=== PATIENT | female | born 1935 | race American Indian/Alaskan Native ===

== ENCOUNTER 2017-03-12 09:08 | Outpatient (CLI) | payer MEDICARE ==
--- NOTE | 2017-03-12 10:12 | Mammography Report ---
Screening mammogram: The patient had bilateral breast reduction surgery and there is distortion and retraction of the nipples related to the surgery. There are 2 biopsy clips now located in the central right breast. There is a biopsy clip located in the inferior left breast. Scattered benign calcifications are noted. A few small circumscribed scattered nodules are identified in each breast. These findings appear unchanged from prior exams obtained in 2016. No currently suspicious findings. CAD used. Impressions: Stable breast pattern postreduction surgery and biopsies. Recommendation: Annual mammogram followup. BI-RADS CATEGORY: 2 = Benign ACR BI-RADS MAMMOGRAPHIC CODES: 0 = Needs additional imaging evaluation; 1 = Negative; 2 = Benign; 3 = Probably benign; 4 = Suspicious; 5 = Malignant; 6 = Known biopsy-proven malignancy COMMENT: 1. Dense breast tissue, i.e., adenosis, fibrocystic changes, etc., may obscure an underlying neoplasm. 2. Approximately 10% of cancers are not detected with mammography. 3. A negative mammography report should not delay biopsy if a clinically suspicious mass is present. A
== END 2017-03-12 09:09 | disposition home or self-care (01) ==
LOC: SPVWC 09:08
PROVIDERS: ATTEND Internal Medicine
DX: Z12.31 Encounter for screening mammogram for malignant neoplasm of breast (principal); Z98.890 Other specified postprocedural states
CPT/HCPCS: 77067; G0202

== ENCOUNTER 2018-09-23 10:28 | Outpatient (CLI) | payer MEDICARE ==
--- NOTE | 2018-09-23 15:59 | Mammography Report ---
BILATERAL DIGITAL SCREENING MAMMOGRAM with CAD: 09/23/18 10:28:00 CLINICAL: Routine screening. History of bilateral reduction mammoplasty. Previous right benign breast biopsy and biopsy of a benign right axillary epidermal inclusion cyst. COMPARISON:03/12/17 FINDINGS: The breasts are mostly fatty with stable bilateral postsurgical scar and nipple retraction. No mass, suspicious architectural distortion or suspicious calcifications. IMPRESSION: No mammographic evidence of malignancy. BI-RADS CATEGORY: 2 -- Benign RECOMMENDATION: Routine mammographic screening in one year. COMMENT: Patient follow-up letters are generated by our [employer] application.
== END 2018-09-23 10:29 | disposition home or self-care (01) ==
LOC: SPVWC 10:28
PROVIDERS: ATTEND Internal Medicine
DX: Z12.31 Encounter for screening mammogram for malignant neoplasm of breast (principal)
CPT/HCPCS: 77067